=== PATIENT | female | born 1970 | race Caucasian/White ===

== ENCOUNTER 2021-08-28 09:14 | Emergency (ER) | payer OTHER ==
[2021-08-28 09:36] VITALS: BP 164/98; PULSE 81; TEMP 97.9; BMI 27.4
[2021-08-28] MEDS ORDERED: IBUPROFEN 400 MG TABLET (FP) PO ONE ×2 (10:56→11:31)
== END 2021-08-28 12:25 | disposition home or self-care (01) ==
LOC: JER 09:14 → JERFT 09:14
DX: S50.02XA Contusion of left elbow, initial encounter (principal); W00.0XXA Fall on same level due to ice and snow, initial encounter
CPT/HCPCS: 73070-TC-LT-FY; 99284-25